=== PATIENT | male | born 1970 | race Caucasian/White ===

== ENCOUNTER 2020-06-06 13:08 | Emergency (ER) | payer MEDICAID, SELFPAY ==
--- NOTE | ~2020-06-06 | XR_ITS ---
EXAMINATION: XR CHEST CLINICAL INFORMATION: Question pneumonia COMPARISON: 06/29/2014 TECHNIQUE: Frontal view of the chest was obtained. FINDINGS: No significant abnormality is noted involving the heart, lungs, mediastinum, bony thorax or soft tissues. At the time of the 2011 study, the lungs are hypoexpanded and opacities were present which have cleared. XR/XR chest 1V IMPRESSION: No acute intrathoracic disease. There is no finding to suggest the presence of pneumonia.
--- NOTE | ~2020-06-06 | CT_ITS ---
EXAMINATION: CT HEAD WITHOUT CONTRAST CT CERVICAL SPINE WITHOUT CONTRAST CLINICAL INFORMATION: Altered mental status. Fall. COMPARISON: CT head from 10/20/2015. TECHNIQUE: Contiguous axial imaging was performed from the skull base to vertex without intravenous administration of contrast. Contiguous axial imaging was performed from the upper chest through the skull base without intravenous administration of contrast. Coronal and sagittal reformats were obtained at the acquisition workstation. This CT examination was performed using dose optimization techniques as appropriate, variously including the following: *Automated exposure control. *Adjustment of mA and/or kV according to patient size (this includes techniques or standardized protocols for targeted exams where dose is matched to indication/reason for exam; i.e. extremities or head). *Use of iterative reconstruction technique. DLP: 1031 mGy-cm FINDINGS: Head: Loss of coleman-white matter differentiation within the left insula, temporal, occipital, and parietal lobes. No evidence of hemorrhagic conversion. Effacement of the regional sulci. No additional loss of coleman-white matter differentiation. The ventricles are normal in size and configuration. No evidence for obstructive hydrocephalus. No abnormal mass effect or midline shift. No abnormal herniation pattern. No extra-axial fluid collections. No hyperdense vessel sign. No acute soft tissue or osseous abnormalities. Mild mucosal thickening of the paranasal sinuses. The mastoid air cells and middle ear cavities are clear. Cervical Spine: The atlantooccipital and atlantoaxial articulations remain well aligned. Reversal the normal cervical lordosis centered on C5-C6. Otherwise, there is anatomic alignment of the vertebral bodies and posterior elements. No evidence of acute fracture or subluxation. The vertebral body heights maintained. Moderate degenerative disc disease from C4-C7 with disc-osteophyte complex formation. Prominent anterior osteophytosis from C3-C7. Facet and uncovertebral joint arthropathy leads to osseous encroachment on the neural foramina at C6-C7. And disc spaces are maintained. There is no prevertebral soft tissue swelling. The thyroid gland and remaining cervical soft tissues are normal in appearance. Underlying centrilobular emphysema. CT/CT cervical spine wo con IMPRESSION: 1. Acute to subacute left MCA territory infarct. No evidence of hemorrhagic conversion. 2. No evidence of acute fracture or traumatic subluxation of the cervical spine. Moderate multilevel degenerative spondyloarthropathy of the cervical spine. This critical result was discussed with Dr. Cruz at 19:18 on 06/06/2020 and it was ascertained that the content and urgency of the report was understood at the time of direct communication.
--- NOTE | ~2020-06-06 | CT_ITS ---
EXAMINATION: CT ANGIOGRAM HEAD CT ANGIOGRAM NECK CLINICAL INFORMATION: Carotid emboli. Acute to subacute stroke. Symptoms for 3 days. COMPARISON: CT head from 06/06/2020. TECHNIQUE: Initial noncontrast protector plate attacher imaging of the head and neck was performed. Comparison is made with noncontrast head CT from earlier today. Test bolus sequences followed by intravenous administration 70 mL of Omnipaque 350. Helical imaging was performed in the axial plane from the aortic arch to the skull vertex. Delayed postcontrast imaging of the head was also performed. The data was processed at the ct scan technologist's workstation for generation of MIP sequences. Angled MIPs and volume rendered reformatted images were also generated at an offline 3D workstation. Stenoses are assessed in accordance with NASCET criteria unless otherwise indicated. DLP: 1621 mGy-cm This CT examination was performed using dose optimization techniques as appropriate, variously including the following: *Automated exposure control. *Adjustment of mA and/or kV according to patient size (this includes techniques or standardized protocols for targeted exams where dose is matched to indication/reason for exam; i.e. extremities or head). *Use of iterative reconstruction technique. FINDINGS: CT Head: Loss of coleman-white matter differentiation within the left insula, temporal, occipital, and parietal lobes. No evidence of hemorrhagic conversion. Effacement of the regional sulci. No additional loss of coleman-white matter differentiation. The ventricles are normal in size and configuration. No evidence for obstructive hydrocephalus. No abnormal mass effect or midline shift. No abnormal herniation pattern. No extra-axial fluid collections. Gyriform hyperattenuation within the face sulcal spaces of the left temporal and parietal lobes on postcontrast imaging. No acute soft tissue or osseous abnormalities. Mild mucosal thickening of the paranasal sinuses. The mastoid air cells and middle ear cavities are clear. CT Neck: The thyroid gland and remaining cervical soft tissues are within normal limits. Moderate degenerative disc disease from C4-C7 with disc-osteophyte complex formation. Prominent anterior osteophytosis from C3-C7. Facet and uncovertebral joint arthropathy leads to osseous encroachment on the neural foramina at C6-C7. CT Upper Chest: Moderate centrilobular emphysema the visualized upper mediastinum is within normal limits. Neck CTA: Aortic Arch: Normal contour and caliber with mild calcific atherosclerotic disease. Classic 3 vessel branching pattern of the aortic arch. Great Vessel Origins: Mild atherosclerotic narrowing of the origin of the left common carotid artery (less than 50%). No additional significant stenosis of the branch origins. Right Common Carotid Artery: Normal opacification without focal stenosis or occlusion. Cervical Right Internal Carotid Artery: Atherosclerotic disease of the carotid bulb and proximal internal carotid artery causing less than 50% stenosis. Left Common Carotid Artery: Normal opacification without focal stenosis or occlusion. Cervical Left Internal Carotid Artery: Calcific atherosclerotic disease of the carotid bulb and proximal internal carotid artery with complete occlusion at the origin of the left ICA. Cervical Right Vertebral Artery: Co-dominant. Normal opacification without focal stenosis or occlusion. Cervical Left Vertebral Artery: Co-dominant. Normal opacification without focal stenosis or occlusion. Brain CTA: Intracranial Internal Carotid Arteries: Mild calcific atherosclerotic disease. The petrous segment of the left ICA remains completely nonopacified. Partial reconstitution of the cavernous, paraophthalmic, and supraclinoid segments of the left ICA. No occlusion or flow-limiting stenosis of the intracranial right ICA. Right Anterior Cerebral Artery: Normal A1 segment. Normal opacification of the distal segments of the LORAINE. Left Anterior Cerebral Artery: Normal A1 segment. Normal opacification of the distal segments of the LORAINE. Anterior Communicating Artery: Normal. Right Middle Cerebral Artery: Mild narrowing of the origin of the M1 segment of the right MCA. Otherwise, normal opacification of the M1 segment. Normal arborization of the distal segments. Left Middle Cerebral Artery: Moderate narrowing of the proximal M1 segment of the left MCA. Complete occlusion of the mid M1 segment. Partial reconstitution of the M2 and distal segments of the left MCA. Right Vertebral Artery: Normal opacification of the V4 segment. Normal opacification of the proximal segments of the posterior inferior cerebellar artery. Left Vertebral Artery: Normal opacification of the V4 segment. Normal opacification of the proximal segments of the posterior inferior cerebellar artery. Basilar Artery: Normal opacification without focal stenosis or occlusion. Normal appearance of the proximal superior cerebellar arteries. Right Posterior Cerebral Artery: Normal P1 segment. Normal opacification of the distal segments of the INVESTIGATIVE ANALYST. Left Posterior Cerebral Artery: The P1 segment is diminutive. origin of the INVESTIGATIVE ANALYST with robust opacification of the posterior communicating artery. Normal opacification of the distal segments of the INVESTIGATIVE ANALYST. Normal opacification of the superior sagittal, straight, transverse, and sigmoid sinuses. CT/CT angio head neck IMPRESSION: 1. Acute to subacute infarct of the left MCA territory. No evidence of overt hemorrhagic conversion. Gyriform enhancement along the effaced sulcal spaces in this distribution is suggestive of venous engorgement versus early laminar necrosis. 2. Complete occlusion of the left ICA at its origin. Partial reconstitution of the intracranial segments of the left LORAINE. Complete occlusion of the mid M1 segment of the left MCA. Partial collateralization of the distal branches of the left MCA. 3. Moderate multilevel degenerative spondyloarthropathy of the cervical spine. 4. Emphysema.
[2020-06-06 14:16] VITALS: BP 157/90; PULSE 88; RESP 16; TEMP 36.7; O2SAT 99; BMI 22.6
--- NOTE | 2020-06-06 18:13 | ECG_ITS ---
Test Reason : MEDICAL Blood Pressure : / mmHG Vent. Rate : 078 BPM Atrial Rate : 078 BPM P-R Int : 168 ms QRS Dur : 088 ms QT Int : 368 ms P-R-T Axes : 078 079 072 degrees QTc Int : 419 ms Normal sinus rhythm Possible Left atrial enlargement Borderline ECG When compared with ECG of 05-JUL-2012 19:29, No significant change was found Referred By: Navjot Cruz Electronically Signed By:Won James
--- NOTE | 2020-06-06 18:18 | ED.GENADULT ---
HPI - General Adult General Chief complaint: Altered Mental Status Stated complaint: confused.etoh issue Time Seen by Provider: 06/06/20 21:08 Source: patient and family History of Present Illness HPI narrative: Patient brought to the ED for evaluation of altered mental status for 4 days. Patient brought in by jairon for altered mental status since/drinks thursday. Stepson states patient has known history of alcoholism in the past couple of months he has decreased drinking on his own to 2 bottles of beer every 2-3 days. Stepson states patient had last drink on Thursday night and then woke up altered. Steps and states patient was having memory issues, not able to follow commands, inability to answers simple questions, and difficulty finding words. 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 Stepson states since patient did not improve he jackie patient to the ED for evaluation. Asked patient does remember drinking alcohol thursday night.. Patient was asked if he fell and patient states he was not sure. Related Data Previous Rx's Medication Instructions Recorded aspirin 81 mg PO DAILY #30 tab 06/06/20 Allergies Allergy/AdvReac Type Severity Reaction Status Date / Time ibuprofen [From Motrin] Allergy Intermediate RASH Unverified 01/05/20 14:48 acetaminophen [From TYLENOL] Allergy Unknown UNKNOWN Unverified 01/05/20 14:48 fluoxetine [From PROZAC] Allergy Unknown UNKNOWN Unverified 01/05/20 14:48 Review of Systems Review of Systems: Yes all other systems are reviewed and are negative Constitutional: Constitutional: Reports as per HPI and Reports no additional constitutional complaints Eyes: Eyes: Reports as per HPI and Reports no additional eye complaints ENT: Reports system reviewed and no additional complaints, except as documented and Reports as per HPI Cardiovascular: Cardiovascular: Reports as per HPI and Reports no additional cardiovascular complaints Respiratory: Respiratory: Reports as per HPI and Reports no additional respiratory complaints Gastrointestinal: Gastrointestinal: Reports as per HPI and Reports no additional gastrointestinal complaints Genitourinary: Genitourinary: Reports no additional male genitourinary complaints and Reports as per HPI Musculoskeletal: Musculoskeletal: Reports no additional musculoskeletal complaints and Reports as per HPI Neurologic: Reports system reviewed and no additional complaints, except as documented, Reports as per HPI and Reports confusion Psychiatric: Psychiatric: Reports no additional psychiatric complaints, Reports as per HPI and Reports confusion [facility] Social History Social History Alcohol intake: current Smoking Status: Current every day smoker Use of substances other than those prescribed or required for medical reasons: No Advance Directives: No Advance Directives Information Provided: No Physical Exam Vital Signs: Vital Signs: Last Vital Signs Temp 98.6 F 06/06/20 19:41 Pulse 77 06/06/20 21:39 Resp 17 06/06/20 21:39 BP 160/89 H 06/06/20 21:39 Pulse Ox 99 06/06/20 21:39 Body Mass Index 22.6 Const: General: cooperative, healthy appearing, comfortable, no acute distress, well developed and confusion Orientation/consciousness: confusion HENMT: Head: Yes normal to inspection, Yes No palpable skull fracture present, Yes normocephalic, Yes atraumatic, No abrasion, No Acrocyanosis present, No Kee's sign, No contusion, No cranial bruits, No hematoma, No laceration, No occipital foramen tenderness, No palpable skull fracture, No raccoon eyes, No scalp tenderness and No Temporal artery tenderness present Eyes: General: appearance normal, both eyes and all related structures Neck: Neck: Yes normal visual inspection, Yes full ROM, Yes no lymphadenopathy, Yes no meningeal signs, Yes trachea midline, Yes supple and No tender Chest: Chest palpation & inspection: normal inspection of the chest and normal palpation of entire chest wall Resp: Effort & Inspection: normal respiratory effort and able to speak in complete sentences Auscultation: clear to auscultation bilaterally Cardio: Jugular venous distension: no JVD Heart sounds: S1 normal heart sound present and S2 normal heart sound present GI: Inspection: Yes normal to inspection and No abdominal wall ecchymosis Palpation (GI): Soft to palpation, not firm, nontender, no guarding and not rigid : General: No CVA tenderness and Yes no CVA tenderness Back/Spine/Pelvis: Back: no CVA tenderness, No CVA tenderness and No back tenderness Skin: General skin exam: no rashes or lesions noted and elasticity normal Neuro: Other: Patient is alert oriented x3. Patient has normal gait. Negative facial droop. Negative pronator drift. Negative for slurred speech. All extremities motor strength are equal in 5+. Negative pronator drift. [id number] and rapid hand movement intact. Negative for any neuro deficit General: no meningeal signs, CN's II-XI intact bilaterally and confusion Cranial nerves: Yes CN's II-XII intact bilaterally Extrem: General: Yes normal to inspection and Yes full ROM Psych: Appearance: grossly normal, well kempt and not disheveled Course Course Course Narrative: Patient is alert oriented x3. Patient knows the year, place, person and president states. But patient does not remember who his stepson is, hard for patient to find answers to simple questions, takes along while for patient to follow commands. Patient has to be redirected multiple times nor for command to be completed. Negative for any neuro deficit, patient will be sent for head CT scan and cervical spine to make sure there is no trauma due to possible fall. If this is a stroke patient is out the window, but very unlikely due to patient not having any neuro deficit. Will send liver enzymes and ammonia to rule out hepatitis encephalopathy. Will do chest x-ray UA to rule out any source of infection. Also will do drug screen to see if this is drug induced. Physical exam negative for tremors, but this may be due to the introduced to patient slowly cutting alcohol intake the last 6 months without any detox program. Accepting come back negative full discuss plan with attending to possibly start patient on phenobarbital. Patient's mental status waxed and waned. Reevaluation(s) Reevaluation #1: Called by radiologist and informed that patient had a subacute stroke. Patient is out the window for any intervention. Spoke with attending Dr. Lynch who recommend CT of the head and neck. Discussed issue with lana that patients out the window for intervention. 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 Dr. Lynch was made aware of this and he states patient can be discharged with aspirin and should follow up with Neurologist outpatient. Patient is outside the window by 4 days. On discharge patient neuro exam is intact. Patient was explained that he had stroke and he understood. Patient alert oriented x3 before discharge. Patient had normal gait. Stepson and patient will call Neurology tomorrow for outpatient follow-up Time: 21:39 Medical Decision Making MDM Narrative Medical decision making narrative: Stroke Lab Data Result diagrams: 06/06/20 19:21 06/06/20 19:21 Labs: Lab Results 06/06/20 06/06/20 06/06/20 Range/Units 19:21 19:21 19:21 WBC 7.0 (4.8-10.8) X10*3/uL RBC 4.35 L (4.60-5.80) X10*6/uL Hgb 13.6 L (14.0-18.0) g/dl Hct 40.3 L (42-52) % MCV 92.6 (80-98) fL MCH 31.3 (27.0-33.0) pg MCHC 33.7 (31.0-36.0) g/dl RDW 13.2 (11.0-16.0) % Plt Count 243 (160-400) X10*3/uL MPV 9.1 L (9.4-12.4) fL Immature Gran % (Auto) 0.1 (0.0-0.4) % Neut % (Auto) 54.9 (45-73) % Lymph % (Auto) 35.4 (20-40) % [place] % (Auto) 6.9 (2-11) % Eos % (Auto) 2.3 (0-4) % Baso % (Auto) 0.4 (0-2) % Lymph # (Auto) 2.5 (1.2-4.9) X10*3/uL [place] # (Auto) 0.5 (0.1-1.2) X10*3/uL Eos # (Auto) 0.2 (0.0-0.4) X10*3/uL Baso # (Auto) 0.0 (0.0-0.2) X10*3/uL Abs Immat Gran (auto) 0.01 (0.00-0.03) X10*3/uL Absolute Neuts (auto) 3.8 (2.0-8.3) X10*3/uL Absolute Nucleated RBC 0.000 (0.0-0.012) X10*3/uL Nucleated RBC % (auto) 0.0 (0.0-0.2) /100WBC PT 12.4 (10.8-13.0) SEC INR 1.0 (0.9-1.1) APTT 35.1 (24.1-38.0) SEC Sodium 136 (135-145) mmol/L Potassium 4.2 (3.3-5.1) mmol/L Chloride 99 (96-108) mmol/L Carbon Dioxide 31 H (22-29) mmol/L Anion Gap 10 L (12-20) BUN 10 (9-16) mg/dL Creatinine 0.83 (0.5-1.4) mg/dL Estim Creat Clear Calc 114.8 Estimated GFR > 60 Random Glucose 115 (60-115) mg/dL Calcium 9.4 (8.4-10.2) mg/dL Total Bilirubin 0.5 (0.0-1.0) mg/dL Direct Bilirubin 0.2 (0.0-0.5) mg/dL AST 15 (5-37) U/L ALT 10 (0-40) U/L Alkaline Phosphatase 54 (39-117) U/L Ammonia (13-55) umol/L Troponin I High Sens (<3.5-35.0) ng/L Total Protein 6.7 (6.5-8.0) g/dL Albumin 4.2 (3.5-5.0) g/dL Ethyl Alcohol mg/dL COVID-19 (TOÑO) (Negative) COVID-19 Clin Com 06/06/20 06/06/20 06/06/20 Range/Units 19:21 19:21 19:21 WBC (4.8-10.8) X10*3/uL RBC (4.60-5.80) X10*6/uL Hgb (14.0-18.0) g/dl Hct (42-52) % MCV (80-98) fL MCH (27.0-33.0) pg MCHC (31.0-36.0) g/dl RDW (11.0-16.0) % Plt Count (160-400) X10*3/uL MPV (9.4-12.4) fL Immature Gran % (Auto) (0.0-0.4) % Neut % (Auto) (45-73) % Lymph % (Auto) (20-40) % [place] % (Auto) (2-11) % Eos % (Auto) (0-4) % Baso % (Auto) (0-2) % Lymph # (Auto) (1.2-4.9) X10*3/uL [place] # (Auto) (0.1-1.2) X10*3/uL Eos # (Auto) (0.0-0.4) X10*3/uL Baso # (Auto) (0.0-0.2) X10*3/uL Abs Immat Gran (auto) (0.00-0.03) X10*3/uL Absolute Neuts (auto) (2.0-8.3) X10*3/uL Absolute Nucleated RBC (0.0-0.012) X10*3/uL Nucleated RBC % (auto) (0.0-0.2) /100WBC PT (10.8-13.0) SEC INR (0.9-1.1) APTT (24.1-38.0) SEC Sodium (135-145) mmol/L Potassium (3.3-5.1) mmol/L Chloride (96-108) mmol/L Carbon Dioxide (22-29) mmol/L Anion Gap (12-20) BUN (9-16) mg/dL Creatinine (0.5-1.4) mg/dL Estim Creat Clear Calc Estimated GFR Random Glucose (60-115) mg/dL Calcium (8.4-10.2) mg/dL Total Bilirubin (0.0-1.0) mg/dL Direct Bilirubin (0.0-0.5) mg/dL AST (5-37) U/L ALT (0-40) U/L Alkaline Phosphatase (39-117) U/L Ammonia 25 (13-55) umol/L Troponin I High Sens < 3.5 (<3.5-35.0) ng/L Total Protein (6.5-8.0) g/dL Albumin (3.5-5.0) g/dL Ethyl Alcohol < 10 mg/dL COVID-19 (TOÑO) (Negative) COVID-19 Clin Com 06/06/20 Range/Units 19:21 WBC (4.8-10.8) X10*3/uL RBC (4.60-5.80) X10*6/uL Hgb (14.0-18.0) g/dl Hct (42-52) % MCV (80-98) fL MCH (27.0-33.0) pg MCHC (31.0-36.0) g/dl RDW (11.0-16.0) % Plt Count (160-400) X10*3/uL MPV (9.4-12.4) fL Immature Gran % (Auto) (0.0-0.4) % Neut % (Auto) (45-73) % Lymph % (Auto) (20-40) % [place] % (Auto) (2-11) % Eos % (Auto) (0-4) % Baso % (Auto) (0-2) % Lymph # (Auto) (1.2-4.9) X10*3/uL [place] # (Auto) (0.1-1.2) X10*3/uL Eos # (Auto) (0.0-0.4) X10*3/uL Baso # (Auto) (0.0-0.2) X10*3/uL Abs Immat Gran (auto) (0.00-0.03) X10*3/uL Absolute Neuts (auto) (2.0-8.3) X10*3/uL Absolute Nucleated RBC (0.0-0.012) X10*3/uL Nucleated RBC % (auto) (0.0-0.2) /100WBC PT (10.8-13.0) SEC INR (0.9-1.1) APTT (24.1-38.0) SEC Sodium (135-145) mmol/L Potassium (3.3-5.1) mmol/L Chloride (96-108) mmol/L Carbon Dioxide (22-29) mmol/L Anion Gap (12-20) BUN (9-16) mg/dL Creatinine (0.5-1.4) mg/dL Estim Creat Clear Calc Estimated GFR Random Glucose (60-115) mg/dL Calcium (8.4-10.2) mg/dL Total Bilirubin (0.0-1.0) mg/dL Direct Bilirubin (0.0-0.5) mg/dL AST (5-37) U/L ALT (0-40) U/L Alkaline Phosphatase (39-117) U/L Ammonia (13-55) umol/L Troponin I High Sens (<3.5-35.0) ng/L Total Protein (6.5-8.0) g/dL Albumin (3.5-5.0) g/dL Ethyl Alcohol mg/dL COVID-19 (TOÑO) Negative (Negative) COVID-19 Clin Com See Note ECG Data Interpretation: Normal sinus rhythm. Negative STEMI. Ventricular rate 78. Pr interval 168. QRS 88. QTC 419. negative stemi Discharge Plan Discharge Clinical Impression: Stroke Patient Disposition: Home, Self-Care Instructions: Stroke (DC) Additional Instructions: Return to the ED for any slurred speech, paralysis of extremities, loss of vision, worsened altered mental status or any other concerning symptoms. Prescriptions: New aspirin 81 mg tablet,chewable 81 mg PO DAILY Qty: 30 RF: 0 Referrals: Victorina Manning MD [Physician] - 2 days (Sub acute stroke. patient presented to the ED 4 days after onset. ) Interventions: ED Discharge Assessment Last Done: 06/06/20 21:55 Discharge Date/Time: 06/06/20 22:01 Print Language: Togolese
[2020-06-06 18:58] VITALS: BP 131/84; PULSE 78; RESP 17; O2SAT 99
[2020-06-06] MEDS: 0.9 % Sodium Chloride 1,000 ML 999 ML IV (19:24)
[2020-06-06 19:31] LABS: Basophils Percent Auto 0.4 % (0-2); Eosinophils Absolute Auto 0.2 X10*3/uL (0.0-0.4); Eosinophils Percent Auto 2.3 % (0-4); Hematocrit 40.3 % (42-52); Hemoglobin 13.6 g/dl (14.0-18.0); Imm Gran Abs Auto 0.01 X10*3/uL (0.00-0.03); Imm Gran Pct Auto 0.1 % (0.0-0.4); Lymphocytes Absolute Auto 2.5 X10*3/uL (1.2-4.9); Lymphocytes Percent Auto 35.4 % (20-40); Mean Corpuscular HGB Conc 33.7 g/dl (31.0-36.0); Mean Corpuscular Hemoglobin 31.3 pg (27.0-33.0); Mean Corpuscular Volume 92.6 fL (80-98); Mean Platelet Volume 9.1 fL (9.4-12.4); Monocytes Absolute Auto 0.5 X10*3/uL (0.1-1.2); Monocytes Percent Auto 6.9 % (2-11); Neutrophils Absolute Auto 3.8 X10*3/uL (2.0-8.3); Neutrophils Percent Auto 54.9 % (45-73); Platelet Count 243 X10*3/uL (160-400); Red Blood Count 4.35 X10*6/uL (4.60-5.80); Red Cell Distribution Width 13.2 % (11.0-16.0)
[2020-06-06 19:32] LABS: MANUAL DIFF FLAG NO
[2020-06-06 19:38] LABS: Prothrombin Time 12.4 SEC (10.8-13.0)
[2020-06-06 19:40] LABS: Partial Thromboplastin Time 35.1 SEC (24.1-38.0)
[2020-06-06 19:41] VITALS: BP 126/81; PULSE 74; RESP 16; TEMP 37; O2SAT 100
[2020-06-06 19:57] LABS: COVID-19 Test Negative (Negative)
[2020-06-06 19:59] LABS: Ammonia 25 umol/L (13-55)
[2020-06-06 20:03] LABS: Ethanol < 10 mg/dL
[2020-06-06 20:07] LABS: Alanine Aminotransferase 10 U/L (0-40); Albumin Level 4.2 g/dL (3.5-5.0); Alkaline Phosphatase 54 U/L (39-117); Anion Gap 10 (12-20); Aspartate Amino Transferase 15 U/L (5-37); Bilirubin Direct 0.2 mg/dL (0.0-0.5); Bilirubin Total 0.5 mg/dL (0.0-1.0); Blood Urea Nitrogen 10 mg/dL (9-16); Calcium 9.4 mg/dL (8.4-10.2); Carbon Dioxide 31 mmol/L (22-29); Chloride 99 mmol/L (96-108); Creatinine Clr Calc Pharmacy 114.8; Estimated Glomerular Filt Rate > 60; Glucose Random 115 mg/dL (60-115); Potassium 4.2 mmol/L (3.3-5.1); Sodium 136 mmol/L (135-145); Total Protein 6.7 g/dL (6.5-8.0)
[2020-06-06 20:09] LABS: Troponin-I High Sensitivity < 3.5 ng/L (<3.5-35.0)
[2020-06-06] MEDS: iohexoL 350 MG/ML 100 ML INFUS..BTL IV (20:30)
[2020-06-06 21:39] VITALS: BP 160/89; PULSE 77; RESP 17; O2SAT 99
[2020-06-06] MEDS: Aspirin 81 MG TAB.CHEW PO (21:56)
--- NOTE | 2020-06-14 14:24 | MHC.STROKE ---
LATE ENTRY FOR 06/06/20 1800. PATIENT WALKED-IN AFTER 4-DAYS OF WORD FINDING, NIHSS = 1. CT HEAD FOLLOWED BY CTA H/N REVEALED A LARGE LEFT MCA TERRITORY ISCHEMIC STROKE. NO PMH OF STROKE, NO CAROTID US NOTED I THE PAST, HX OF ETOH, DEPRESSION, HLD,SMOKER. HE WAS EXCLUDED FROM TPA AND [place] THROMBECTOMY TREATMENT DUE TO ONSET APPROXIMATELY 4 DAYS PRIOR 06/02/20. PATIENT WAS INSTRUCTED TO FOLLOW UP WITH A NEUROLOGIST, HE DID NOT SEE DR CHAND, I DID CHECK WITH THAT OFFICE. HIS STEPSON IS A NURSE AND THEY COULD HAVE CALLED ANOTHER LOCAL NEUOLOGIST. NPO DURING THE ED VISIT. STROKE EDUCATION PROVIDED BY ED STAFF.
== END 2020-06-06 22:01 | disposition home or self-care (01) ==
PROVIDERS: Physician Assistant; Emergency Provider Internal Medicine
DX: I63.9 Cerebral infarction, unspecified (principal); F10.20 Alcohol dependence, uncomplicated; F17.200 Nicotine dependence, unspecified, uncomplicated; Z71.6 Tobacco abuse counseling; Z20.822 Contact with and (suspected) exposure to COVID-19
CPT/HCPCS: 36415; 70450; 70496; 70498; 71045; 72125; 80053; 80076; 80320; 82140; 82248; 84484; 85025; 85610; 85730; 87635; 93005; 96360; 99284; Q9967

== ENCOUNTER 2020-08-21 16:24 | Emergency (ER) | payer MEDICAID, SELFPAY ==
--- NOTE | ~2020-08-21 | CT_ITS ---
EXAMINATION: CT HEAD WITHOUT CONTRAST CLINICAL INFORMATION: EtOH, fall COMPARISON: CT brain 06/06/2020 TECHNIQUE: Contiguous axial imaging was performed from the skull base to vertex without intravenous administration of contrast. This CT examination was performed using dose optimization techniques as appropriate, variously including the following: *Automated exposure control *Adjustment of mA and/or kV according to patient size (this includes techniques or standardized protocols for targeted exams where dose is matched to indication/reason for exam; i.e. extremities or head) *Use of iterative reconstruction technique DLP: 715 mGy-cm FINDINGS: There there is a hypodensity seen in the left parietal, temporal lobes consistent with encephalomalacia from old insult. There is no acute intra-axial, extra axial bleed, acute infarction, edema or midline shift. The lateral ventricles are symmetrical but mildly enlarged. Mild prominence of left frontoparietal cortical sulci from encephalomalacia is noted. No abnormal] all white matter attenuation seen. The osseous structures and soft tissues are normal. The mastoid air cells and visualized portions of the paranasal sinuses are well aerated. CT/CT head/brain wo con IMPRESSION: No acute intracranial process seen Left parietal temporal lobe encephalomalacia from old insult. Mild prominence of lateral ventricles likely from volume loss.
--- NOTE | 2020-08-21 16:38 | ED_ITS ---
HPI - Alcohol General Chief Complaint: ETOH/Substance Use Stated Complaint: ETOH,HYPERTENSION Time Seen by Provider: 08/21/20 16:34 Source: EMS Mode of arrival: EMS History of Present Illness HPI narrative: Patient with history of left MCA stroke 06/10 with complete occlusion of left ICA at its origin alcoholic comes here from the street was found on the ground intoxicated when EMS checked the blood pressure was 220/130 NA arrived in the ER was 116/ 70 patient has expressive aphasia unable to get the details MD complaint: alcohol intoxication Related Data Previous Rx's Medication Instructions Recorded aspirin 81 mg PO DAILY #30 tab 06/06/20 Allergies Allergy/AdvReac Type Severity Reaction Status Date / Time ibuprofen [From Motrin] Allergy Intermediate RASH Unverified 01/05/20 14:48 acetaminophen [From TYLENOL] Allergy Unknown UNKNOWN Unverified 01/05/20 14:48 fluoxetine [From PROZAC] Allergy Unknown UNKNOWN Unverified 01/05/20 14:48 Review of Systems Review of Systems: Yes Unobtainable due to mental condition [facility] Past Medical History Medical History (Updated 08/21/20 @ 18:49 by Dennis Lynch MD) Alcoholism Chronic ischemic left MCA stroke Expressive aphasia Social History Social History Alcohol intake: current Smoking Status: Unknown if ever smoked Use of substances other than those prescribed or required for medical reasons: Unknown Advance Directives: No Advance Directives Information Provided: No Physical Exam Vital Signs: Vital Signs: Last Vital Signs Temp 97.7 F 08/21/20 16:44 Pulse 88 08/21/20 16:44 Resp 16 08/21/20 16:44 BP 113/70 08/21/20 16:44 Pulse Ox 99 08/21/20 16:44 Body Mass Index 21.1 Appearance: Alert and awake. No acute distress. Eyes: PERRLA, No Nystagmus HEENT: Atraumatic, normocephalic Pharynx normal. Oral Mucosa moist, ETOH++ Neck: Normal inspection. Neck supple. CVS: Normal heart rate and rhythm. Pulses normal. Respiratory: No respiratory distress. Equal air entry bilateral, no wheezing/rales/rhonchi Abdomen: Soft and nontender. Bowel sounds are present, no mass palpable, no CVA tenderness Skin: Skin warm and dry. Normal skin color. Normal skin turgor. Extremities: No lower extremity edema. No calf tenderness Neuro: Oriented X 3. No motor deficit. No sensory deficit.No cerebellar signs , cranial nerves II-XII intact, expressive aphasia moving all 4 extremities equally MDM - Alcohol MDM Narrative Medical decision making narrative: Patient toxic aerated at his baseline workup is negative otherwise ambulatory in the ER will discharge patient home CT scan head is negative for any acute bleed Medical Records Attestation: I reviewed the patient's medical records. Lab Data Attestation: I reviewed the patient's lab results. Result diagrams: 08/21/20 17:13 08/21/20 17:13 Labs: Lab Results 08/21/20 08/21/20 08/21/20 Range/Units 17:13 17:13 17:13 WBC 7.8 (4.8-10.8) X10*3/uL RBC 4.56 L (4.60-5.80) X10*6/uL Hgb 13.8 L (14.0-18.0) g/dl Hct 41.6 L (42-52) % MCV 91.2 (80-98) fL MCH 30.3 (27.0-33.0) pg MCHC 33.2 (31.0-36.0) g/dl RDW 13.3 (11.0-16.0) % Plt Count 276 (160-400) X10*3/uL MPV 9.2 L (9.4-12.4) fL Immature Gran % (Auto) 0.3 (0.0-0.4) % Neut % (Auto) 51.4 (45-73) % Lymph % (Auto) 41.8 H (20-40) % [place] % (Auto) 5.2 (2-11) % Eos % (Auto) 0.8 (0-4) % Baso % (Auto) 0.5 (0-2) % Lymph # (Auto) 3.3 (1.2-4.9) X10*3/uL [place] # (Auto) 0.4 (0.1-1.2) X10*3/uL Eos # (Auto) 0.1 (0.0-0.4) X10*3/uL Baso # (Auto) 0.0 (0.0-0.2) X10*3/uL Abs Immat Gran (auto) 0.02 (0.00-0.03) X10*3/uL Absolute Neuts (auto) 4.0 (2.0-8.3) X10*3/uL Absolute Nucleated RBC 0.000 (0.0-0.012) X10*3/uL Nucleated RBC % (auto) 0.0 (0.0-0.2) /100WBC PT 12.1 (10.8-13.0) SEC INR 1.0 (0.9-1.1) Sodium 144 (135-145) mmol/L Potassium 3.3 D (3.3-5.1) mmol/L Chloride 108 (96-108) mmol/L Carbon Dioxide 26 (22-29) mmol/L Anion Gap 13 (12-20) BUN 6 L (9-16) mg/dL Creatinine 0.73 (0.5-1.4) mg/dL Estim Creat Clear Calc 121.5 Estimated GFR > 60 Random Glucose 76 (60-115) mg/dL Calcium 9.2 (8.4-10.2) mg/dL Magnesium 2.1 (1.6-2.6) mg/dL Total Bilirubin 0.4 (0.0-1.0) mg/dL Direct Bilirubin 0.2 (0.0-0.5) mg/dL AST 13 (5-37) U/L ALT < 6 (0-40) U/L Alkaline Phosphatase 76 D (39-117) U/L Total Protein 6.8 (6.5-8.0) g/dL Albumin 4.3 (3.5-5.0) g/dL Ethyl Alcohol mg/dL COVID-19 (TOÑO) (Negative) COVID-19 Clin Com 08/21/20 08/21/20 Range/Units 17:13 17:13 WBC (4.8-10.8) X10*3/uL RBC (4.60-5.80) X10*6/uL Hgb (14.0-18.0) g/dl Hct (42-52) % MCV (80-98) fL MCH (27.0-33.0) pg MCHC (31.0-36.0) g/dl RDW (11.0-16.0) % Plt Count (160-400) X10*3/uL MPV (9.4-12.4) fL Immature Gran % (Auto) (0.0-0.4) % Neut % (Auto) (45-73) % Lymph % (Auto) (20-40) % [place] % (Auto) (2-11) % Eos % (Auto) (0-4) % Baso % (Auto) (0-2) % Lymph # (Auto) (1.2-4.9) X10*3/uL [place] # (Auto) (0.1-1.2) X10*3/uL Eos # (Auto) (0.0-0.4) X10*3/uL Baso # (Auto) (0.0-0.2) X10*3/uL Abs Immat Gran (auto) (0.00-0.03) X10*3/uL Absolute Neuts (auto) (2.0-8.3) X10*3/uL Absolute Nucleated RBC (0.0-0.012) X10*3/uL Nucleated RBC % (auto) (0.0-0.2) /100WBC PT (10.8-13.0) SEC INR (0.9-1.1) Sodium (135-145) mmol/L Potassium (3.3-5.1) mmol/L Chloride (96-108) mmol/L Carbon Dioxide (22-29) mmol/L Anion Gap (12-20) BUN (9-16) mg/dL Creatinine (0.5-1.4) mg/dL Estim Creat Clear Calc Estimated GFR Random Glucose (60-115) mg/dL Calcium (8.4-10.2) mg/dL Magnesium (1.6-2.6) mg/dL Total Bilirubin (0.0-1.0) mg/dL Direct Bilirubin (0.0-0.5) mg/dL AST (5-37) U/L ALT (0-40) U/L Alkaline Phosphatase (39-117) U/L Total Protein (6.5-8.0) g/dL Albumin (3.5-5.0) g/dL Ethyl Alcohol 290 mg/dL COVID-19 (TOÑO) Negative (Negative) COVID-19 Clin Com See Note ECG Data Attestation: I personally reviewed and interpreted this ECG as follows: Interpretation: Normal sinus rhythm heart rate 75 beats per minute normal intervals normal axis no acute ST T wave changes no acute ischemia Discharge Plan Discharge Clinical Impression: Alcoholic intoxication Patient Disposition: Home, Self-Care Instructions: Alcohol Intoxication (ED) Additional Instructions: Stop drinking alcohol. Follow-up with detox Prescriptions: No Action aspirin 81 mg tablet,chewable 81 mg PO DAILY Qty: 30 RF: 0
[2020-08-21 16:44] VITALS: BP 113/70; PULSE 88; RESP 16; TEMP 36.5; O2SAT 99; BMI 21.1
--- NOTE | 2020-08-21 16:45 | ECG_ITS ---
Test Reason : GENERAL MEDICAL Blood Pressure : / mmHG Vent. Rate : 075 BPM Atrial Rate : 075 BPM P-R Int : 156 ms QRS Dur : 082 ms QT Int : 388 ms P-R-T Axes : 065 075 069 degrees QTc Int : 433 ms Normal sinus rhythm Possible Left atrial enlargement Borderline ECG When compared with ECG of 06-JUN-2020 19:36, No significant change was found Referred By: Dennis Lynch Electronically Signed By:JOSE LUIS HERNANDEZ
[2020-08-21 17:32] LABS: MANUAL DIFF FLAG NO
[2020-08-21 17:34] LABS: Basophils Percent Auto 0.5 % (0-2); Eosinophils Absolute Auto 0.1 X10*3/uL (0.0-0.4); Eosinophils Percent Auto 0.8 % (0-4); Hematocrit 41.6 % (42-52); Hemoglobin 13.8 g/dl (14.0-18.0); Imm Gran Abs Auto 0.02 X10*3/uL (0.00-0.03); Imm Gran Pct Auto 0.3 % (0.0-0.4); Lymphocytes Absolute Auto 3.3 X10*3/uL (1.2-4.9); Lymphocytes Percent Auto 41.8 % (20-40); Mean Corpuscular HGB Conc 33.2 g/dl (31.0-36.0); Mean Corpuscular Hemoglobin 30.3 pg (27.0-33.0); Mean Corpuscular Volume 91.2 fL (80-98); Mean Platelet Volume 9.2 fL (9.4-12.4); Monocytes Absolute Auto 0.4 X10*3/uL (0.1-1.2); Monocytes Percent Auto 5.2 % (2-11); Neutrophils Percent Auto 51.4 % (45-73); Platelet Count 276 X10*3/uL (160-400); Red Blood Count 4.56 X10*6/uL (4.60-5.80); Red Cell Distribution Width 13.3 % (11.0-16.0); White Blood Count 7.8 X10*3/uL (4.8-10.8)
[2020-08-21 17:38] LABS: Prothrombin Time 12.1 SEC (10.8-13.0)
[2020-08-21 17:48] LABS: COVID-19 Test Negative (Negative)
[2020-08-21 17:54] LABS: Ethanol 290 mg/dL
[2020-08-21 17:58] LABS: Alanine Aminotransferase < 6 U/L (0-40); Albumin Level 4.3 g/dL (3.5-5.0); Alkaline Phosphatase 76 U/L (39-117); Anion Gap 13 (12-20); Aspartate Amino Transferase 13 U/L (5-37); Bilirubin Direct 0.2 mg/dL (0.0-0.5); Bilirubin Total 0.4 mg/dL (0.0-1.0); Blood Urea Nitrogen 6 mg/dL (9-16); Calcium 9.2 mg/dL (8.4-10.2); Carbon Dioxide 26 mmol/L (22-29); Chloride 108 mmol/L (96-108); Creatinine Clr Calc Pharmacy 121.5; Estimated Glomerular Filt Rate > 60; Glucose Random 76 mg/dL (60-115); Magnesium 2.1 mg/dL (1.6-2.6); Potassium 3.3 mmol/L (3.3-5.1); Sodium 144 mmol/L (135-145); Total Protein 6.8 g/dL (6.5-8.0)
== END 2020-08-21 19:06 | disposition home or self-care (01) ==
PROVIDERS: Emergency Provider Internal Medicine
DX: F10.220 Alcohol dependence with intoxication, uncomplicated (principal); Y90.8 Blood alcohol level of 240 mg/100 ml or more; Z20.822 Contact with and (suspected) exposure to COVID-19
CPT/HCPCS: 36415; 70450; 80048; 80076; 80320; 83735; 85025; 85610; 87635; 93005; 99284; 99285

== ENCOUNTER 2020-10-24 21:32 | Emergency (ER) | payer MEDICAID, SELFPAY ==
--- NOTE | ~2020-10-24 | CT_ITS ---
EXAMINATION: CT HEAD WITHOUT CONTRAST CT CERVICAL SPINE WITHOUT CONTRAST CLINICAL INFORMATION: Fall. EtOH COMPARISON: CT head August 21, 2020. CT cervical spine October 20, 2015, June 06, 2020 TECHNIQUE: Imaging was performed from the skull base to vertex without intravenous administration of contrast. In addition, helical noncontrast CT imaging was acquired through the cervical spine and source images were reviewed along with axial reconstructions and sagittal and coronal MPRs. [This CT examination was performed using dose optimization techniques as appropriate, variously including the following: *Automated exposure control *Adjustment of mA and/or kV according to patient size (this includes techniques or standardized protocols for targeted exams where dose is matched to indication/reason for exam; i.e. extremities or head) *Use of iterative reconstruction technique] DLP: 1727 mGy-cm FINDINGS: HEAD: Old left parietal temporal lobe infarct. Encephalomalacia unchanged since prior CT head. No acute abnormality. No intracranial hemorrhage. No extra-axial collection. No skull fracture. No mass effect or hydrocephalus. There is stable mild global atrophy. CERVICAL SPINE: There is no evidence of acute cervical spine fracture. Vertebral bodies remain normal in height. Cervical vertebrae have normal alignment. There is multilevel degenerative spondylosis of the cervical spine with disc height narrowing and endplate spurs and facet joint arthrosis No pre- or paravertebral soft tissue abnormality is identified. Emphysematous change of lung apices. CT/CT cervical spine wo con IMPRESSION: 1. No acute intracranial pathology. 2. No CT evidence of acute cervical spine fracture or traumatic subluxation
--- NOTE | ~2020-10-24 | CT_ITS ---
EXAMINATION: CT HEAD WITHOUT CONTRAST CT CERVICAL SPINE WITHOUT CONTRAST CLINICAL INFORMATION: Fall. EtOH COMPARISON: CT head August 21, 2020. CT cervical spine October 20, 2015, June 06, 2020 TECHNIQUE: Imaging was performed from the skull base to vertex without intravenous administration of contrast. In addition, helical noncontrast CT imaging was acquired through the cervical spine and source images were reviewed along with axial reconstructions and sagittal and coronal MPRs. [This CT examination was performed using dose optimization techniques as appropriate, variously including the following: *Automated exposure control *Adjustment of mA and/or kV according to patient size (this includes techniques or standardized protocols for targeted exams where dose is matched to indication/reason for exam; i.e. extremities or head) *Use of iterative reconstruction technique] DLP: 1727 mGy-cm FINDINGS: HEAD: Old left parietal temporal lobe infarct. Encephalomalacia unchanged since prior CT head. No acute abnormality. No intracranial hemorrhage. No extra-axial collection. No skull fracture. No mass effect or hydrocephalus. There is stable mild global atrophy. CERVICAL SPINE: There is no evidence of acute cervical spine fracture. Vertebral bodies remain normal in height. Cervical vertebrae have normal alignment. There is multilevel degenerative spondylosis of the cervical spine with disc height narrowing and endplate spurs and facet joint arthrosis No pre- or paravertebral soft tissue abnormality is identified. Emphysematous change of lung apices. CT/CT head/brain wo con IMPRESSION: 1. No acute intracranial pathology. 2. No CT evidence of acute cervical spine fracture or traumatic subluxation
[2020-10-24 21:43] VITALS: BP 126/70; BP 150/93; PULSE 80; PULSE 92; RESP 16; TEMP 36.3; O2SAT 96; O2SAT 98; BMI 20.9
--- NOTE | 2020-10-24 22:26 | PC.NURSE ---
pt removed his C collar and was out of bed attempting to go to the bathroom. this nurse and corrosion control technician Soraya assisted patient to the bathroom as patients gait was unsteady. pt back in bed at this time. aware.
--- NOTE | 2020-10-24 22:39 | ED_ITS ---
HPI - Fall General Chief Complaint: Fall Stated Complaint: ETOH Time Seen by Provider: 10/24/20 22:25 History of Present Illness HPI Narrative: this is a patient who is a history of stroke and was drinking today, fell and hit his forehead, suffered an abrasion to his forehead. The patient is not able to give a coherent history due to his intoxication. The patient has dysarthria at baseline due to his prior stroke Related Data Previous Rx's Medication Instructions Recorded aspirin 81 mg PO DAILY #30 tab 06/06/20 Allergies Allergy/AdvReac Type Severity Reaction Status Date / Time ibuprofen [From Motrin] Allergy Intermediate RASH Unverified 01/05/20 14:48 acetaminophen [From TYLENOL] Allergy Unknown UNKNOWN Unverified 01/05/20 14:48 fluoxetine [From PROZAC] Allergy Unknown UNKNOWN Unverified 01/05/20 14:48 Review of Systems Review of Systems: Yes Unobtainable due to mental status Neurologic: Denies Sensory deficit (Neuro) [facility] Past Medical History Medical History (Updated 10/25/20 @ 00:33 by Darwin Jones MD) Alcoholism Chronic ischemic left MCA stroke Expressive aphasia Social History Social History Alcohol intake: current Advance Directives: No Advance Directives Information Provided: No Physical Exam Vital Signs: Vital Signs: Last Vital Signs Temp 97.4 F 10/24/20 21:43 Pulse 80 10/24/20 21:43 Resp 16 10/24/20 21:43 BP 150/93 H 10/24/20 21:43 Pulse Ox 96 10/24/20 21:43 Body Mass Index 20.9 Const: General: cooperative, no acute distress and alert Orientation/consciousness: patient oriented x3 HENMT: Head: Yes other ( abrasion right forehead above the eye brow, superficial abrasions right ch) Eyes: General: appearance normal, both eyes and all related structures Eyelids: Yes eyelids normal Conjunctivae: conjunctivae normal Pupils: Equal, round and reactive pupils present Neck: Neck: Yes normal visual inspection and Yes supple Chest: Chest palpation & inspection: normal inspection of the chest Resp: Effort & Inspection: normal respiratory effort Auscultation: clear to auscultation bilaterally Cardio: Rate: regular rate Rhythm: regular rhythm Heart sounds: S1 normal heart sound present, S2 normal heart sound present, no gallops, no murmurs and no rubs GI: Palpation (GI): Soft to palpation, nontender and Other GI palpation findings present (Non-distended) Auscultation: normal bowel sounds Skin: General skin exam: no rashes or lesions noted Neuro: General: patient oriented x3, no focal motor deficits and CN's II-XI intact bilaterally Cranial nerves: Yes Equal, round and reactive pupils present Cognition (Neuro): normal cognition Motor exam (neuro): 5/5 motor strength present throughout Sensory Exam: No Sensory deficit (Neuro) Extrem: General: Yes normal to inspection and Yes no pedal edema Psych: Appearance: grossly normal Affect: normal affect MDM - Fall MDM Narrative Medical decision making narrative: patient with an isolated facial injury, principally to the forehead, after falling associated with alcohol intoxication. Patient has no sober ride and therefore is to be in the ED till morning. CT of the head and cervical spine were negative. Abrasions were cleansed and dressed. Patient was given Ativan 2 mg IM for sedation and prevent alcohol withdrawal overnight Imaging Data CT scan - head: Radiologist's impression: negative for any acute pathology CT cervical spine: Radiologist's impression: no evidence of any traumatic injury to the cervical spine Discharge Plan Discharge Clinical Impression: Alcohol intoxication, Abrasion of face Patient Disposition: Home, Self-Care Instructions: Head Injury (ED), Abrasion (ED) Additional Instructions: cleanse your abrasions daily with soap and water, and apply antibiotic ointment. take Tylenol for pain. Return for any unusual symptoms such as progressive headache, nausea vomiting Prescriptions: No Action aspirin 81 mg tablet,chewable 81 mg PO DAILY Qty: 30 RF: 0
--- NOTE | 2020-10-25 00:55 | PC.NURSE ---
this nurse spoke to pt HCP (Reece). HCP is unable to pick up man pt from ED and pt unable to be discharged by himself until clinically sober. per HCP no ride is available to pick pt up until tomorrow morning. MD aware. Plan is to keep pt in ED, monitor and medicate to prevent alcohol withdrawal until he is clinically sober or a ride is available.
--- NOTE | 2020-10-25 00:58 | PC.NURSE ---
this nurse assisted pt to the bathroom again. Gait is still unsteady. MD muhammad
[2020-10-25] MEDS: LORazepam 2 MG/ML VIAL IM (01:11)
--- NOTE | 2020-10-25 03:05 | PC.NURSE ---
pt sleeping in left lateral position. respirations even and unlabored. no distress noted at this time.
[2020-10-25 05:30] VITALS: RESP 16
--- NOTE | 2020-10-25 07:06 | PC.NURSE ---
Patient is asleep in bed in no distress. Respirations are even and nonlabored
--- NOTE | 2020-10-25 08:30 | PC.NURSE ---
Patient is awake and alert. Pt is ambulatory to the bathroom unassisted. No distress noted.
[2020-10-25 08:42] VITALS: BP 122/79; PULSE 89; RESP 19; TEMP 35.6; O2SAT 93
--- NOTE | 2020-10-25 08:54 | PC.NURSE ---
Patient sitting up on side of bed eating breakfast.
--- NOTE | 2020-10-25 09:09 | PC.NURSE ---
Peripheral iv removed and pressure bandage applied. Pt given discharge instructions and escorted to families vehicle in no distress
== END 2020-10-25 09:20 | disposition home or self-care (01) ==
PROVIDERS: Emergency Provider Emergency Medicine
DX: F10.229 Alcohol dependence with intoxication, unspecified (principal); Y90.9 Presence of alcohol in blood, level not specified; S00.81XA Abrasion of other part of head, initial encounter; Z86.73 Personal history of transient ischemic attack (TIA), and cerebral infarction without residual deficits; Z79.82 Long term (current) use of aspirin; W19.XXXA Unspecified fall, initial encounter; Y93.9 Activity, unspecified; Y92.9 Unspecified place or not applicable; Y99.9 Unspecified external cause status
CPT/HCPCS: 70450; 72125; 96372; 99284; J2060

== ENCOUNTER 2022-11-26 15:13 | Emergency (ER) | payer MEDICAID, SELFPAY ==
[2022-11-26 15:58] VITALS: BP 188/108; PULSE 66; RESP 18; TEMP 36.4; O2SAT 96; BMI 17.9
--- NOTE | 2022-11-26 15:58 | ED.GENADULT ---
HPI - General Adult General Chief complaint: ETOH/Substance Use Stated complaint: Seeking detox/Mental health Time Seen by Provider: 11/26/22 17:36 Source: patient, RN notes reviewed and old records reviewed Mode of arrival: ambulatory Limitations: other (Poor story) History of Present Illness HPI narrative: A 52-year-old male with past medical history significant for previous CVA with residual right-sided deficits, history of alcohol abuse, depression presents for evaluation of depression and looking for detox Patient reports that he had not been drinking for 10 days. He reports that his girlfriend left him yesterday after they got into a fight He reports he was treating all day yesterday due to this and has been depressed but is not suicidal He reports that he lives ?in assisted living in [place], [place]. Physically he reports that he feels well and has no somatic complaints His last drink was yesterday He does not feel that he is on withdrawal Related Data Previous Rx's Medication Instructions Recorded aspirin 81 mg chewable tablet 81 mg PO DAILY #30 tabs 06/06/20 Allergies Allergy/AdvReac Type Severity Reaction Status Date / Time ibuprofen [From Motrin] Allergy Intermediate RASH Unverified 01/05/20 14:48 acetaminophen [From TYLENOL] Allergy Unknown UNKNOWN Unverified 01/05/20 14:48 fluoxetine [From PROZAC] Allergy Unknown UNKNOWN Unverified 01/05/20 14:48 Review of Systems Constitutional: Constitutional: Reports as per HPI, Denies chills, Denies fatigue, Denies fever(s) and Denies headache(s) ENT: Denies headache(s) Cardiovascular: Cardiovascular: Denies chest pain and Denies dyspnea Respiratory: Respiratory: Denies cough and Denies dyspnea Gastrointestinal: Gastrointestinal: Denies abdominal pain, Denies constipation and Denies vomiting Genitourinary: Genitourinary: Denies difficulty urinating and Denies dysuria Neurologic: Denies headache(s) Endocrine: Endocrine: Denies fatigue PMFSH Past Medical History Medical History (Updated 10/26/20 @ 00:02 by Background Dalaura) Alcoholism Chronic ischemic left MCA stroke Expressive aphasia Social History Social History Alcohol intake: current Advance Directives: No Advance Directives Information Provided: No Physical Exam ED Vital Signs: Vital Signs - 24 hr 11/26/22 15:58 11/26/22 17:07 11/26/22 18:37 Temperature 97.5 F 97.8 F 97.4 F Pulse Rate 66 70 64 Respiratory Rate 18 17 16 Blood Pressure 188/108 H 180/97 H 187/105 H Pulse Oximetry 96 99 99 Oxygen Delivery Method Room Air Room Air Room Air 11/26/22 19:59 Temperature 98.7 F Pulse Rate 69 Respiratory Rate 16 Blood Pressure 192/99 H Pulse Oximetry 98 Oxygen Delivery Method Room Air BMI result Body Mass Index 17.9 Const General: healthy appearing, comfortable, no acute distress, alert and awake Nutritional Appearance: well nourished Orientation/consciousness: patient oriented x3 HENMT Head: Yes normocephalic and Yes atraumatic Eyes Eyelids: Yes eyelids normal Conjunctivae: conjunctivae normal Sclerae: sclerae normal Corneas: corneas normal Pupils: Equal, round and reactive pupils present EOM: EOMs intact bilaterally Neck Neck: Yes full ROM Resp Effort & Inspection: normal respiratory effort, able to speak in complete sentences and not labored GI Inspection: No distended Palpation (GI): Soft to palpation, not firm, nontender, no guarding and not rigid Auscultation: normoactive bowel sounds Skin General skin exam: no rashes or lesions noted and elasticity normal Neuro General: patient oriented x3 Cranial nerves: Yes Equal, round and reactive pupils present and Yes Bilaterally intact EOM present Cognition (Neuro): normal cognition Course Course Course Narrative: RME - 52 yo male with history of MCA stroke in the past with severe residual deficits and tremor who presents to the ER for evaluation for detox from alcohol. Last drink yesterday. Very depressed but not suicidal. BP 180/100 in triage, HR 60s. Baseline hand tremor. Does not feel like he is in withdrawal at this time. Plan: lab workup/medical clearance Reevaluation(s) Reevaluation #1: Patient was seen by the recovery team will provide the patient with resources for detox. Unfortunately there are no detox beds available but the patient is interested in being discharged home any ways. Time: 20:32 Medical Decision Making Medical Decision Making MDM Narrative: 52-year-old male presents for evaluation of depression and looking for detox from alcohol. The patient's alcohol level is less than 10 and he does not appear to be in acute withdrawal. His medical workup is unremarkable. He will get a care to evaluation for his depression all the patient is not suicidal and not on a Section 12. The patient is medically cleared at this time Differential Diagnosis Differential Diagnoses: The differential diagnosis associated with the presentation includes Depression anxiety Alcohol abuse Mood disorder Lab Data MDM Lab Attestation statement: I reviewed the patient's lab results. Significant lab abnormalities. There is no leukocytosis. No significant anemia. Platelet count within normal limits. Electrolytes all within normal limits including sodium, potassium, chloride. Renal function within normal limits with a BUN of 11 and a creatinine of 1.0. Glucose elevated to 137. 11/26/22 16:57 11/26/22 16:57 Labs: Lab Results 11/26/22 11/26/22 11/26/22 Range/Units 16:57 16:57 18:46 WBC 9.7 (4.8-10.8) X10*3/uL RBC 4.87 (4.60-5.80) X10*6/uL Hgb 15.0 (14.0-18.0) g/dl Hct 45.8 (42.0-52.0) % MCV 94.0 (80.0-98.0) fL MCH 30.8 (27.0-33.0) pg MCHC 32.8 (31.0-36.0) g/dl RDW 14.6 (11.0-16.0) % Plt Count 276 (160-400) X10*3/uL MPV 9.7 (9.4-12.4) fL Immature Gran % (Auto) 0.2 (0.0-0.4) % Neut % (Auto) 49.8 (45-73) % Lymph % (Auto) 34.0 (20-40) % [place] % (Auto) 7.5 (2-11) % Eos % (Auto) 7.2 H (0-4) % Baso % (Auto) 1.3 (0-2) % Lymph # (Auto) 3.3 (1.2-4.9) X10*3/uL [place] # (Auto) 0.7 (0.1-1.2) X10*3/uL Eos # (Auto) 0.7 H (0.0-0.4) X10*3/uL Baso # (Auto) 0.1 (0.0-0.2) X10*3/uL Abs Immat Gran (auto) 0.02 (0.00-0.03) X10*3/uL Absolute Neuts (auto) 4.8 (2.0-8.3) x10*3/uL Absolute Nucleated RBC 0.000 (0.0-0.012) X10*3/uL Nucleated RBC % (auto) 0.0 (0.0-0.2) /100WBC Sodium 140 (135-145) mmol/L Potassium 3.7 (3.3-5.1) mmol/L Chloride 105 (96-108) mmol/L Carbon Dioxide 27 (22-29) mmol/L Anion Gap 12 (12-20) BUN 11 (9-16) mg/dL Creatinine 1.00 (0.5-1.4) mg/dL Estim Creat Clear Calc 73.5 Estimated GFR > 60 Random Glucose 137 H (60-115) mg/dL Calcium 9.4 (8.4-10.2) mg/dL Magnesium 2.2 (1.6-2.6) mg/dL Total Bilirubin 0.4 (0.0-1.0) mg/dL Direct Bilirubin 0.2 (0.0-0.5) mg/dL AST 14 (5-37) U/L ALT 8 (0-40) U/L Alkaline Phosphatase 62 (39-117) U/L Total Protein 6.9 (6.5-8.0) g/dL Albumin 4.2 (3.5-5.0) g/dL Urine Color Yellow Urine Appearance Clear Urine pH 6.5 (5.0-9.0) Ur Specific [place] 1.025 (1.005-1.025) Urine Protein Trace (Neg-Trace) mg/dL Urine Glucose (UA) Negative (Negative) mg/dL Urine Ketones Negative (Negative) mg/dL Urine Blood Negative (Negative) Urine Nitrite Negative (Negative) Ur Leukocyte Esterase Negative (Negative) Urine Opiates Screen (Not Detect) Urine Fentanyl Screen (Not Detect) Ur Barbiturates Screen (Not Detect) Ur Phencyclidine Scrn (Not Detect) Ur Amphetamines Screen (Not Detect) U Benzodiazepines Scrn (Not Detect) Urine Cocaine Screen (Not Detect) U Marijuana (THC) Screen (Not Detect) Ethyl Alcohol < 10 mg/dL 11/26/22 Range/Units 20:02 WBC (4.8-10.8) X10*3/uL RBC (4.60-5.80) X10*6/uL Hgb (14.0-18.0) g/dl Hct (42.0-52.0) % MCV (80.0-98.0) fL MCH (27.0-33.0) pg MCHC (31.0-36.0) g/dl RDW (11.0-16.0) % Plt Count (160-400) X10*3/uL MPV (9.4-12.4) fL Immature Gran % (Auto) (0.0-0.4) % Neut % (Auto) (45-73) % Lymph % (Auto) (20-40) % [place] % (Auto) (2-11) % Eos % (Auto) (0-4) % Baso % (Auto) (0-2) % Lymph # (Auto) (1.2-4.9) X10*3/uL [place] # (Auto) (0.1-1.2) X10*3/uL Eos # (Auto) (0.0-0.4) X10*3/uL Baso # (Auto) (0.0-0.2) X10*3/uL Abs Immat Gran (auto) (0.00-0.03) X10*3/uL Absolute Neuts (auto) (2.0-8.3) x10*3/uL Absolute Nucleated RBC (0.0-0.012) X10*3/uL Nucleated RBC % (auto) (0.0-0.2) /100WBC Sodium (135-145) mmol/L Potassium (3.3-5.1) mmol/L Chloride (96-108) mmol/L Carbon Dioxide (22-29) mmol/L Anion Gap (12-20) BUN (9-16) mg/dL Creatinine (0.5-1.4) mg/dL Estim Creat Clear Calc Estimated GFR Random Glucose (60-115) mg/dL Calcium (8.4-10.2) mg/dL Magnesium (1.6-2.6) mg/dL Total Bilirubin (0.0-1.0) mg/dL Direct Bilirubin (0.0-0.5) mg/dL AST (5-37) U/L ALT (0-40) U/L Alkaline Phosphatase (39-117) U/L Total Protein (6.5-8.0) g/dL Albumin (3.5-5.0) g/dL Urine Color Urine Appearance Urine pH (5.0-9.0) Ur Specific [place] (1.005-1.025) Urine Protein (Neg-Trace) mg/dL Urine Glucose (UA) (Negative) mg/dL Urine Ketones (Negative) mg/dL Urine Blood (Negative) Urine Nitrite (Negative) Ur Leukocyte Esterase (Negative) Urine Opiates Screen POSITIVE H (Not Detect) Urine Fentanyl Screen Not Detected (Not Detect) Ur Barbiturates Screen Not Detected (Not Detect) Ur Phencyclidine Scrn Not Detected (Not Detect) Ur Amphetamines Screen Not Detected (Not Detect) U Benzodiazepines Scrn Not Detected (Not Detect) Urine Cocaine Screen Not Detected (Not Detect) U Marijuana (THC) Screen POSITIVE H (Not Detect) Ethyl Alcohol mg/dL Discharge Plan Discharge Clinical Impression: Alcohol abuse Patient Disposition: Home, Self-Care Instructions: Abuse of Alcohol (ED) Additional Instructions: Your workup in the emergency department today was reassuring. You have been provided with a list of detox resources by the recovery team You may return for any new or worsening symptoms Prescriptions: No Action aspirin 81 mg tablet,chewable 81 mg PO DAILY Qty: 30 0RF
[2022-11-26 17:07] VITALS: BP 180/97; PULSE 70; RESP 17; TEMP 36.6; O2SAT 99
[2022-11-26 17:12] LABS: MANUAL DIFF FLAG NO
[2022-11-26 17:37] LABS: Basophils Absolute Auto 0.1 X10*3/uL (0.0-0.2); Basophils Percent Auto 1.3 % (0-2); Eosinophils Absolute Auto 0.7 X10*3/uL (0.0-0.4); Eosinophils Percent Auto 7.2 % (0-4); Hematocrit 45.8 % (42.0-52.0); Imm Gran Abs Auto 0.02 X10*3/uL (0.00-0.03); Imm Gran Pct Auto 0.2 % (0.0-0.4); Lymphocytes Absolute Auto 3.3 X10*3/uL (1.2-4.9); Mean Corpuscular HGB Conc 32.8 g/dl (31.0-36.0); Mean Corpuscular Hemoglobin 30.8 pg (27.0-33.0); Mean Platelet Volume 9.7 fL (9.4-12.4); Monocytes Absolute Auto 0.7 X10*3/uL (0.1-1.2); Monocytes Percent Auto 7.5 % (2-11); Neutrophils Absolute Auto 4.8 x10*3/uL (2.0-8.3); Neutrophils Percent Auto 49.8 % (45-73); Platelet Count 276 X10*3/uL (160-400); Red Blood Count 4.87 X10*6/uL (4.60-5.80); Red Cell Distribution Width 14.6 % (11.0-16.0); White Blood Count 9.7 X10*3/uL (4.8-10.8)
[2022-11-26 17:38] LABS: Alanine Aminotransferase 8 U/L (0-40); Albumin Level 4.2 g/dL (3.5-5.0); Alkaline Phosphatase 62 U/L (39-117); Anion Gap 12 (12-20); Aspartate Amino Transferase 14 U/L (5-37); Bilirubin Direct 0.2 mg/dL (0.0-0.5); Bilirubin Total 0.4 mg/dL (0.0-1.0); Blood Urea Nitrogen 11 mg/dL (9-16); Calcium 9.4 mg/dL (8.4-10.2); Carbon Dioxide 27 mmol/L (22-29); Chloride 105 mmol/L (96-108); Creatinine Clr Calc Pharmacy 73.5; Estimated Glomerular Filt Rate > 60; Ethanol < 10 mg/dL; Glucose Random 137 mg/dL (60-115); Magnesium 2.2 mg/dL (1.6-2.6); Potassium 3.7 mmol/L (3.3-5.1); Sodium 140 mmol/L (135-145); Total Protein 6.9 g/dL (6.5-8.0)
[2022-11-26 18:37] VITALS: BP 187/105; PULSE 64; RESP 16; TEMP 36.3; O2SAT 99
[2022-11-26 19:00] LABS: Appearance Urine Clear; Color Urine Yellow; Glucose Urine UA Negative (Negative); Leukocyte Esterase Urine Negative (Negative); Nitrite Urine Negative (Negative); PH 6.5 (5.0-9.0); Specific Gravity - Urine 1.025 (1.005-1.025); Urine Blood Negative (Negative); Urine Ketones Negative (Negative); Urine Protein Trace mg/dL (Neg-Trace)
--- NOTE | 2022-11-26 19:47 | MHC.RECOVSUP ---
Met with pt in ED6 who is here for [facility]. Pt reports having been sober for 10 days, but last night he from his girlfriend and drank 10 nips. Pt informs he has been struggling with his memory and speech since a stroke he had 4 years ago, but is going to a speech therapist on Mondays in [place]. Pt is not currently looking for ATS and intends to go back to the assisted living in [place]. Pt was provided recovery resources and has no other questions or concerns at this time. Provider aware.
[2022-11-26 19:59] VITALS: BP 192/99; PULSE 69; RESP 16; TEMP 37.1; O2SAT 98
[2022-11-26 20:18] LABS: Amphetamine Screen Urine Not Detected (Not Detect); Barbiturates, Urine Not Detected (Not Detect); Benzodiazepines Screen Urine Not Detected (Not Detect); Cannabinoid Screen Urine POSITIVE (Not Detect); Cocaine Screen Urine Not Detected (Not Detect); Fentanyl, urine Not Detected (Not Detect); Opiate Screen Urine POSITIVE (Not Detect); Phencyclidine Screen Urine Not Detected (Not Detect)
== END 2022-11-26 20:58 | disposition home or self-care (01) ==
PROVIDERS: Physician Assistant; Emergency Provider Internal Medicine
DX: F10.10 Alcohol abuse, uncomplicated (principal); Y90.0 Blood alcohol level of less than 20 mg/100 ml; Z79.899 Other long term (current) drug therapy
CPT/HCPCS: 36415; 80048; 80076; 80307; 81003; 83735; 85025; 99284; 99285